=== PATIENT | female | born 1990 | race African-American/Black ===

== ENCOUNTER 2021-01-27 10:00 | Inpatient (IN) | payer OTHER ==
[2021-01-31 07:43] VITALS: BMI 31.6
[2021-01-31] MEDS ORDERED: ONDANSETRON 4 MG/2 ML VIAL IVPUSH PRN (07:48)
[2021-01-31] MEDS ORDERED: morphine SULFATE/PF 1 MG/2 ML (2cc Syringe - QUVA) EP ONE (07:48)
[2021-01-31] MEDS ORDERED: morphine SULFATE (PF) 1 MG/2 ML SYRINGE ONE (08:02)
[2021-01-31] MEDS ORDERED: ceFAZolin SODIUM 1 GM VIAL ONE (08:03)
[2021-01-31] MEDS ORDERED: CITRIC ACID/SODIUM CITRATE 30 ML UNIT-DOSE CUP PO ONE (08:09)
[2021-01-31] MEDS ORDERED: diphenhydrAMINE HCL 25 MG CAPSULE (FP) PO PRN (08:13)
[2021-01-31] MEDS ORDERED: oxyCODONE HCL 5 MG TABLET PO PRN (08:13)
[2021-01-31] MEDS ORDERED: HYDROmorphone HCL 2 MG TABLET PO PRN (08:13)
[2021-01-31] MEDS ORDERED: BENZOCAINE 20% 57 GM BOTTLE TP PRN (08:13)
[2021-01-31] MEDS ORDERED: METHYLERGONOVINE MALEATE 0.2 MG/1 ML AMP IM PRN (08:13)
[2021-01-31] MEDS ORDERED: BENZOCAINE 28 GM HEMORRHOIDAL OINTMENT TP PRN (08:13)
[2021-01-31] MEDS ORDERED: WITCH HAZEL 50% (TUCKS) 40 PAD/JAR PAD TP PRN (08:13)
[2021-01-31] MEDS ORDERED: ELECTROLYTE-148 SOLN 1,000 ML IV SCH (08:15)
[2021-01-31] MEDS ORDERED: OXYTOCIN 10 UNIT/ML 10ML MDV ONE (08:29)
[2021-01-31 09:04] LABS: CORD BASE EXCESS -5.3 mmol/L (0-2); CORD HCO3 22.1 mmHg (20-29); CORD PCO2 51.5 mmHg (30-78); CORD pH 7.251 (7.14-7.44)
[2021-01-31 09:14] LABS: CORD BASE EXCESS -4.8 mmol/L (0-2); CORD HCO3 20.6 mmHg (20-29); CORD PCO2 39.4 mmHg (30-78); CORD pH 7.337 (7.14-7.44)
[2021-01-31] MEDS: IBUPROFEN 800 MG/8 ML IJ IVPB PRN (16:14)
[2021-02-01] MEDS: IBUPROFEN 800 MG/8 ML IJ IVPB PRN (03:14)
[2021-02-01 07:31] LABS: HEMATOCRIT 29.8 % (32.4-45.2); HEMOGLOBIN 10.2 GM/dL (10.7-15.3); MEAN PLT VOLUME 8.8 fl (7.5-11.1); PLATELET COUNT 203 10^3/uL (134-434); RBC 3.17 M/mm3 (3.60-5.2); RDW 14.7 % (11.6-15.6); WHITE BLOOD COUNT 8.4 K/mm3 (4.0-10.0)
[2021-02-01] MEDS ORDERED: BISACODYL 10 MG SUPP.RECT PR PRN (08:13)
[2021-02-01] MEDS ORDERED: FLU VACC QS2021-22(6MOS UP)/PF 60 MCG/0.5 ML SYRINGE IM ONE (10:00)
[2021-02-01] MEDS ORDERED: DIPHTH,PERTUSS(ACELL),TET 0.5 ML DISP.SYRIN IM ONE (10:00)
[2021-02-01] MEDS: SIMETHICONE 80 MG TAB.CHEW (FP) PO PRN ×3 (11:43→23:13)
[2021-02-01] MEDS: IBUPROFEN 600 MG TABLET (FP) PO PRN ×3 (11:44→23:11)
[2021-02-02] MEDS: oxyCODONE HCL 5 MG TABLET PO PRN ×2 (01:54→21:39)
[2021-02-02] MEDS: IBUPROFEN 600 MG TABLET (FP) PO PRN ×2 (08:59→14:19)
[2021-02-02] MEDS: SIMETHICONE 80 MG TAB.CHEW (FP) PO PRN ×3 (09:03→21:40)
[2021-02-02] MEDS: SENNOSIDES/DOCUSATE COMBO (SENNA PLUS) TABLET (UD) PO PRN (21:40)
[2021-02-03] MEDS: SIMETHICONE 80 MG TAB.CHEW (FP) PO PRN ×4 (05:42→19:30)
[2021-02-03] MEDS: IBUPROFEN 600 MG TABLET (FP) PO PRN ×2 (05:43→15:30)
[2021-02-03 08:43] LABS: HEMATOCRIT 33.3 % (32.4-45.2); HEMOGLOBIN 11.3 GM/dL (10.7-15.3); MCH 31.7 pg (25.7-33.7); MCHC 33.9 g/dl (32.0-36.0); MEAN CELL VOLUME 93.7 fl (80-96); MEAN PLT VOLUME 7.9 fl (7.5-11.1); PLATELET COUNT 295 10^3/uL (134-434); RBC 3.56 M/mm3 (3.60-5.2); RDW 14.9 % (11.6-15.6)
[2021-02-03] MEDS: ACETAMINOPHEN 325 MG TABLET (FP) PO PRN ×2 (15:31→19:29)
[2021-02-03] MEDS: SENNOSIDES/DOCUSATE COMBO (SENNA PLUS) TABLET (UD) PO PRN (19:29)
[2021-02-03 22:14] VITALS: TEMP 98.4
[2021-02-03] MEDS: oxyCODONE HCL 5 MG TABLET PO PRN (22:17)
[2021-02-04] MEDS: SIMETHICONE 80 MG TAB.CHEW (FP) PO PRN (03:19)
[2021-02-04] MEDS: oxyCODONE HCL 5 MG TABLET PO PRN ×2 (03:20→07:05)
[2021-02-04 12:44] VITALS: BP 124/68; PULSE 64
[2021-02-04] MEDS: IBUPROFEN 600 MG TABLET (FP) PO PRN (13:26)
== END 2021-02-04 17:00 | disposition home or self-care (01) | DRG 540 ==
LOC: JLDR 01-31 07:10 → J3W 01-31 11:00
PROVIDERS: ADMIT Obstetrics & Gynecology; ATTEND Obstetrics & Gynecology
PROC: 10D00Z1 Extraction of Products of Conception, Low, Open Approach (ICD-10-PCS; principal; 2021-01-31)
DX: O32.1XX0 Maternal care for breech presentation, not applicable or unspecified (principal); Z3A.40 40 weeks gestation of pregnancy; Z37.0 Single live birth
CPT/HCPCS: 36415; 36600; 82803; 85027; 88307-TC; 90715